=== PATIENT | female | born 1980 | race Caucasian/White ===

== ENCOUNTER 2021-01-19 14:51 | Emergency (ER) | payer MEDICAID ==
[~2021-01-19] VITALS: Ht 165.1 cm; Wt 70.5 kg
[2021-01-19] MEDS ORDERED: IBUPROFEN 600 MG TABLET PO ONE (15:15)
[2021-01-19] MEDS ORDERED: CYCLOBENZAPRINE HCL 10 MG TABLET PO ONE (15:15)
[2021-01-19 15:25] VITALS: BP 143/81
== END 2021-01-19 16:04 | disposition home or self-care (01) ==
LOC: EMS 14:51
DX: M54.2 Cervicalgia (principal); M54.50 Low back pain, unspecified; F41.9 Anxiety disorder, unspecified; V43.92XA Unspecified car occupant injured in collision with other type car in traffic accident, initial encounter; Y93.89 Activity, other specified; Y92.89 Other specified places as the place of occurrence of the external cause; Y99.8 Other external cause status
CPT/HCPCS: 99283

== ENCOUNTER 2023-11-02 13:47 | Emergency (ER) | payer MEDICAID ==
[~2023-11-02] VITALS: Ht 167.6 cm; Wt 65.0 kg
[2023-11-02 14:26] VITALS: BP 148/76; PULSE 78; RESP 20; TEMP 98.5; O2SAT 100
[2023-11-02 14:47] LABS: COVID AG,FIA SOURCE NASAL SWAB
[2023-11-02 14:48] LABS: BASOPHILS % (AUTO) 0.4 % (0.0-2.0); EOSINOPHILS % (AUTO) 1.2 % (1.0-6.0); HEMATOCRIT 40.7 % (36-46); HEMOGLOBIN 13.3 g/dL (12.0-16.0); LYMPHOCYTES # (AUTO) 1.6 K/uL (1.0-4.8); LYMPHOCYTES % (AUTO) 16.6 % (22.0-44.0); MEAN CORPUSCULAR HEMOGLOBIN 30.1 pg (26.0-34.0); MEAN CORPUSCULAR HGB CONC 32.7 G/dL (31.0-37.0); MEAN CORPUSCULAR VOLUME 92 fL (80-100); MONOCYTES # (AUTO) 0.7 K/uL (0.1-1.0); MONOCYTES % (AUTO) 7.4 % (2.0-9.0); NEUTROPHILS # (AUTO) 7.3 K/uL (1.8-7.7); NEUTROPHILS % (AUTO) 74.4 % (40.0-70.0); PLATELET COUNT (AUTO) 386 K/uL (150-450); RED BLOOD CELL COUNT(AUTO) 4.41 MIL/uL (4.00-5.20); WHITE BLOOD COUNT (AUTO) 9.9 K/uL (4.5-11.0)
[2023-11-02 15:05] LABS: SARS-COV2 (COVID) ANTIGEN,FIA Negative (Negative)
[2023-11-02 15:06] LABS: ANION GAP 9 mmol/L (8-16); CALCIUM, TOTAL 9.1 mg/dL (8.8-10.5); CARBON DIOXIDE 26 mmol/L (22-29); CHLORIDE 101 mmol/L (98-107); CREATININE 0.86 mg/dL (0.60-1.30); GLOMERULAR FILTR. RATE CALC > 60 mL/min (>60); GLUCOSE,RANDOM 96 mg/dL (70-110); POTASSIUM 4.1 mmol/L (3.5-5.1); SODIUM SERUM 136 mmol/L (136-145); UREA NITROGEN, BLOOD 18 mg/dL (7-18)
[2023-11-02 15:08] LABS: ALCOHOL, BLOOD (SERUM) < 3 mg/dL (0-10)
[2023-11-02] MEDS: NEOMYCIN/POLYMYXIN B/HYDROCORT 10 ML OTIC SUSPENSION AS ONE (15:50)
== END 2023-11-02 16:08 | disposition short-term general hospital (02) ==
LOC: EMS 13:47
DX: H60.92 Unspecified otitis externa, left ear (principal); R46.89 Other symptoms and signs involving appearance and behavior; Z20.822 Contact with and (suspected) exposure to COVID-19
CPT/HCPCS: 99283; 87426; 80048; 84703; 85025; G0480; 99285

== ENCOUNTER 2024-10-19 14:33 | Emergency (ER) | payer MEDICAID ==
[~2024-10-19] VITALS: Ht 160 cm; Wt 72.0 kg
[2024-10-19 14:58] VITALS: TEMP 97.9
[2024-10-19 15:56] LABS: PLATELET COUNT (AUTO) 353 K/uL (150-450); RED BLOOD CELL COUNT(AUTO) 3.95 MIL/uL (4.00-5.20); RED CELL DISTRIBUTION WIDTH 13.9 % (11.5-14.5); WHITE BLOOD COUNT (AUTO) 6.4 K/uL (4.5-11.0)
[2024-10-19 16:03] LABS: CALCIUM, TOTAL 8.1 mg/dL (8.8-10.5); CREATININE 0.76 mg/dL (0.60-1.30); GLOMERULAR FILTR. RATE CALC > 60 mL/min (>60); GLUCOSE,RANDOM 128 mg/dL (70-110); SODIUM SERUM 136 mmol/L (136-145); UREA NITROGEN, BLOOD 7 mg/dL (7-18)
[2024-10-19 17:58] VITALS: BP 123/85; PULSE 84; RESP 18; O2SAT 99
== END 2024-10-19 17:59 | disposition home or self-care (01) ==
LOC: EMS 14:33
DX: L29.9 Pruritus, unspecified (principal); M79.18 Myalgia, other site; Z88.8 Allergy status to other drugs, medicaments and biological substances
CPT/HCPCS: 80048; 85025; 99283

== ENCOUNTER 2025-02-12 15:59 | Inpatient (IN) | payer MEDICAID ==
[~2025-02-12] VITALS: Ht 162.6 cm; Wt 79.6 kg
[2025-02-12 16:40] LABS: PLATELET COUNT (AUTO) 361 K/uL (150-450); RED BLOOD CELL COUNT(AUTO) 4.33 MIL/uL (4.00-5.20); RED CELL DISTRIBUTION WIDTH 14.5 % (11.5-14.5); WHITE BLOOD COUNT (AUTO) 10.3 K/uL (4.5-11.0)
[2025-02-12 16:43] LABS: COVID AG,FIA SOURCE NASAL SWAB
[2025-02-12 16:46] LABS: CALCIUM, TOTAL 8.9 mg/dL (8.8-10.5); CREATININE 0.93 mg/dL (0.60-1.30); GLOMERULAR FILTR. RATE CALC > 60 mL/min (>60); GLUCOSE,RANDOM 96 mg/dL (70-110); SODIUM SERUM 142 mmol/L (136-145); UREA NITROGEN, BLOOD 23 mg/dL (7-18)
[2025-02-12 17:09] LABS: SARS-COV2 (COVID) ANTIGEN,FIA Negative (Negative)
[2025-02-12] MEDS ORDERED: ZOLPIDEM TARTRATE 10 MG TABLET PO PRN (17:45)
[2025-02-12 18:03] LABS: PH,URINE DRUG SCREEN 6.0 (5.0-8.0)
[2025-02-12 18:04] LABS: APPEARANCE,URINE CLEAR (CLEAR); GLUCOSE, URINE (UA) NEGATIVE (NEGATIVE); LEUKOCYTE ESTERASE ,URINE TRACE (NEGATIVE); NITRATE,URINE NEGATIVE (NEGATIVE); OCCULT BLOOD,URINE SMALL (NEGATIVE); SPECIFIC GRAVITIY, URINE 1.026 (1.003-1.030)
[2025-02-12 18:10] LABS: AMPHET/METH SCREEN,URINE POSITIVE (NEGATIVE); BARBITURATE SCREEN, URINE NEGATIVE (NEGATIVE); CANNABINOID SCREEN,URINE NEGATIVE (NEGATIVE); COCAINE SCREEN,URINE NEGATIVE (NEGATIVE); METHADONE SCREEN, URINE NEGATIVE (NEGATIVE)
[2025-02-12 18:11] LABS: ALCOHOL, URINE DRUG SCREEN NEGATIVE (NEGATIVE)
[2025-02-12 18:51] LABS: SQUAMOUS EPITHELIAL CELL,UR Rare /LPF (None Seen)
[2025-02-12 21:29] VITALS: BP 146/90; PULSE 71; RESP 18; TEMP 97.9; O2SAT 99
[2025-02-12] MEDS ORDERED: INFLUENZA VIRUS VACCINE TVS (6MO+) 2025-26/PF 45 MCG/0.5 ML SYRINGE IM. ONE (22:30)
[2025-02-13] MEDS ORDERED: MAGNESIUM HYDROXIDE SUSPENSION 30 ML UDCUP PO PRN (05:15)
[2025-02-13] MEDS ORDERED: OMEPRAZOLE 20 MG CAPSULE PO PRN (05:15)
[2025-02-13] MEDS ORDERED: DOCUSATE SODIUM 100 MG CAPSULE PO PRN (05:15)
[2025-02-13] MEDS ORDERED: BENZOCAINE/MENTHOL [CEPACOL] LOZENGE PO PRN (05:15)
[2025-02-13] MEDS ORDERED: IBUPROFEN 600 MG TABLET PO PRN (05:15)
[2025-02-13] MEDS ORDERED: BACITRACIN 28 GM OINTMENT TP PRN (05:15)
[2025-02-13] MEDS ORDERED: ACETAMINOPHEN 325 MG TABLET PO PRN (05:15)
[2025-02-13] MEDS ORDERED: ALBUTEROL SULFATE HFA 90 MCG/PUFF 8 GM INHALER IH PRN (05:15)
[2025-02-13] MEDS ORDERED: ONDANSETRON 4 MG TABLET PO PRN (05:15)
[2025-02-13] MEDS ORDERED: LOPERAMIDE HCL 2 MG CAPSULE PO PRN (05:15)
[2025-02-13] MEDS ORDERED: MAG HYDROX/ALUMINUM HYD/SIMETH ES 30 ML SUSPENSION UDCUP PO PRN (05:15)
[2025-02-13] MEDS ORDERED: PETROLATUM,WHITE 28 GM JELLY TP PRN (05:15)
[2025-02-13 08:10] LABS: CHOL/HDL RATIO 2.8 (3.9-5.7); LDL CHOL (CALC.) 100.0 mg/dL (0-130)
[2025-02-13 17:44] LABS: APPEARANCE,URINE CLEAR (CLEAR); GLUCOSE, URINE (UA) NEGATIVE (NEGATIVE); LEUKOCYTE ESTERASE ,URINE MODERATE (NEGATIVE); NITRATE,URINE NEGATIVE (NEGATIVE); OCCULT BLOOD,URINE TRACE (NEGATIVE); SPECIFIC GRAVITIY, URINE 1.024 (1.003-1.030)
[2025-02-13 17:54] LABS: SQUAMOUS EPITHELIAL CELL,UR Rare /LPF (None Seen)
[2025-02-13 18:02] VITALS: BP 119/75; PULSE 78; RESP 18; TEMP 98.2; O2SAT 98
[2025-02-13] MEDS: LITHIUM CARBONATE 300 MG CAPSULE PO SCH (20:20)
[2025-02-13] MEDS: DIVALPROEX SODIUM 500 MG DR TABLET PO SCH (20:20)
[2025-02-13 22:09] VITALS: BP 128/80; PULSE 81; RESP 18; TEMP 98.1; O2SAT 99
[2025-02-14 08:30] VITALS: RESP 18
[2025-02-14 22:51] VITALS: BP 105/59; PULSE 71; RESP 18; TEMP 97.5; O2SAT 97
[2025-02-15 08:48] VITALS: BP 110/78; PULSE 74; RESP 16; TEMP 97.7; O2SAT 100
[2025-02-15] MEDS ORDERED: LITH300C3 PO (18:26)
[2025-02-15] MEDS ORDERED: DIVA-112 PO (18:26)
[2025-02-15] MEDS ORDERED: OLAN10TA74 PO (18:27)
[2025-02-15] MEDS ORDERED: CEFU250T87 PO (18:28)
[2025-02-15] MEDS ORDERED: LISI-892 PO (18:28)
== END 2025-02-15 19:35 | disposition home or self-care (01) | DRG 753 ==
LOC: EMS 15:59 → 3EC 17:40
PROVIDERS: ADMIT Psychiatry & Neurology Psychiatry; ATTEND Psychiatry & Neurology Psychiatry
DX: F31.9 Bipolar disorder, unspecified (principal); R45.851 Suicidal ideations; F15.10 Other stimulant abuse, uncomplicated; I10 Essential (primary) hypertension; Z20.822 Contact with and (suspected) exposure to COVID-19; F41.9 Anxiety disorder, unspecified; F90.9 Attention-deficit hyperactivity disorder, unspecified type; K59.00 Constipation, unspecified; G47.00 Insomnia, unspecified
CPT/HCPCS: 80048; 80061; 80307; 81001; 83036; 84703; 85025; 87086; 99285; G0480